=== PATIENT | female | born 2000 | race Caucasian/White ===

== ENCOUNTER 2024-02-13 18:43 | Emergency (ER) | payer SELFPAY ==
[2024-02-13] MEDS: Amoxicillin/Clavulanate K 875-125 MG Tab PO ONE (20:21)
[2024-02-13] MEDS: Lidocaine 2% Viscous Solution 15 ML UD PO ONE (20:22)
[2024-02-13] MEDS: Benzocaine 20% Topical Spray UD MUCMEM ONE (20:22)
== END 2024-02-13 20:26 | disposition home or self-care (01) ==
LOC: MW.ED 18:43
DX: K08.89 Other specified disorders of teeth and supporting structures (principal); Z75.8 Other problems related to medical facilities and other health care
CPT/HCPCS: 99282; A9270; 99283

== ENCOUNTER 2024-03-20 09:27 | Emergency (ER) | payer MEDICAID | END 2024-03-20 09:50 | disposition home or self-care (01) | LOC: MW.ED 09:27 | DX: K08.89 Other specified disorders of teeth and supporting structures (principal); Z90.49 Acquired absence of other specified parts of digestive tract; Z75.8 Other problems related to medical facilities and other health care | CPT/HCPCS: 99282 ==